=== PATIENT | male | born 1990 | race African-American/Black ===

== ENCOUNTER 2020-01-16 11:08 | Emergency (ER) | payer OTHER ==
[~2020-01-16] VITALS: Ht 177.8 cm; Wt 68.0 kg
[2020-01-16 11:16] VITALS: BP 136/83
--- NOTE | 2020-01-16 12:04 | NUR ---
PT IS MEDICALLY CLEARED FOR BOOKING. PT IS RELEASED UNDER THE CARE OF JUSTIN LIM. RX AND AFTERCARE INSTRUCTION GIVEN. PT IS AMBULATORY ON STEADY GAIT.
== END 2020-01-16 12:06 ==
LOC: ER 11:11
DX: S61.207A Unspecified open wound of left little finger without damage to nail, initial encounter (principal); X58.XXXA Exposure to other specified factors, initial encounter; Y93.89 Activity, other specified; Y92.89 Other specified places as the place of occurrence of the external cause; Y99.8 Other external cause status